=== PATIENT | female | born 2000 | race Caucasian/White ===

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

== ENCOUNTER 2018-05-06 21:44 | Emergency (ER) | payer OTHER ==
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
[2018-05-06] MEDS ORDERED: KETOROLAC 30 MG/1 ML SDV IVP ONE (21:54)
[2018-05-06] MEDS ORDERED: DEXAMETHASONE 10 MG/ML VIAL IVP ONE (21:54)
[2018-05-06] MEDS ORDERED: METOCLOPRAMIDE 10 MG/2 ML VIAL IVP ONE (21:54)
[2018-05-06] MEDS ORDERED: NS 1,000 ML IV ONE (21:54)
[2018-05-06] MEDS ORDERED: ONDANSETRON 4 MG/2 ML VIAL IVP ONE (21:54)
[2018-05-06 22:20] LABS: PLATELET COUNT 234 10^3/uL (150-400)
[2018-05-07 00:16] VITALS: BP 100/59
== END 2018-05-07 00:35 | disposition home or self-care (01) ==
DX: G43.909 Migraine, unspecified, not intractable, without status migrainosus (principal); E86.9 Volume depletion, unspecified
CPT/HCPCS: 96374; J1100; J1200; J1885; J2405; J2765

== ENCOUNTER 2018-06-22 22:07 | Emergency (ER) | payer OTHER ==
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
[2018-06-23 00:20] VITALS: BP 113/68
== END 2018-06-23 00:18 | disposition home or self-care (01) ==
DX: M53.3 Sacrococcygeal disorders, not elsewhere classified (principal); M54.5 Low back pain; R10.2 Pelvic and perineal pain; V49.09XA Driver injured in collision with other motor vehicles in nontraffic accident, initial encounter; Y93.9 Activity, unspecified; Y92.410 Unspecified street and highway as the place of occurrence of the external cause